=== PATIENT | female | born 1950 ===

== ENCOUNTER 2018-09-04 11:22 | Outpatient (CLI) | payer OTHER ==
[~2018-09-04 11:22] MED LIST: AQUASOL E15 IU/0.3; CELEBREX100 MG; ICAPS MV TAB1 TAB.EC; MEDROL32 MG; PEPCID40 MG PO; PRILOSEC40 MG; PROVENTIL0.5 ML/2.5; SINGULAIR 10MG10 MG; ZOFRAN4 MG PO; [UNRECOGNIZED DRUG - OTHER]; [UNRECOGNIZED DRUG - OTHER]
== END 2018-09-04 11:27 | disposition home or self-care (01) ==
LOC: SONOGRAMA 11:22
DX: E04.2 Nontoxic multinodular goiter (principal)

== ENCOUNTER 2019-03-12 08:40 | Outpatient (CLI) | payer OTHER | END 2019-03-12 08:42 | disposition home or self-care (01) | LOC: SONOGRAMA 08:40 | DX: E04.2 Nontoxic multinodular goiter (principal) ==

== ENCOUNTER 2021-08-07 09:33 | Outpatient (CLI) | payer OTHER | END 2021-08-07 09:38 | disposition home or self-care (01) | LOC: SONOGRAMA 09:33 | PROVIDERS: ATTEND Pathology Anatomic Pathology & Clinical Pathology | DX: E04.1 Nontoxic single thyroid nodule (principal) ==

== ENCOUNTER 2023-03-25 11:33 | Outpatient (CLI) | payer OTHER | END 2023-03-25 11:36 | disposition home or self-care (01) | LOC: SONOGRAMA 11:33 | PROVIDERS: ATTEND Pathology Anatomic Pathology & Clinical Pathology | DX: D34 Benign neoplasm of thyroid gland (principal); E04.9 Nontoxic goiter, unspecified ==